=== PATIENT | male | born 1975 | race Caucasian/White ===

== ENCOUNTER 2018-05-21 10:10 | Emergency (ER) | payer SELFPAY ==
[2018-05-21] MEDS ORDERED: DELTASONE PO ONE (10:45)
[2018-05-21] MEDS ORDERED: NORCO 5/325 PO ONE (10:46)
--- NOTE | 2018-05-21 10:46 | Emergency Department Report ---
ED Chest Pain HPI - General Chief Complaint: Upper Respiratory Infection Stated Complaint: CHEST PAIN/SNEEZING/DIZZY Time Seen by Provider: 05/21/18 10:39 Source: patient, family Mode of arrival: Ambulatory Limitations: No Limitations, Language Barrier - History of Present Illness Initial Comments: Patient is a 43-year-old male who comes in complaining of acute on chronic lower back pain. He also complains of cough and congestion for about a month. The language barrier but he says that he has chest pain associated with coughing only. He is here with his fiance. He has no medical doctor here. He does smoke. He used to be on a pain management program. He currently has no PCP -: Gradual, month(s) Severity: mild Consistency: intermittent Improves With: nothing Worsens With: nothing Other Symptoms: cough. denies: fever - Related Data Previous Rx's Medication Instructions Recorded Last Taken Type Benzonatate [Tessalon Perles] 100 mg PO Q8HR PRN #20 capsule 05/21/18 Unknown Rx Fluticasone [Flonase] 1 spray NS QDAY #1 bottle 05/21/18 Unknown Rx RX: Amoxicillin 500 mg PO BID #20 capsule 05/21/18 Unknown Rx methylPREDNISolone [Medrol] 4 mg PO DAILY #1 tab.ds.pk 05/21/18 Unknown Rx Allergies Allergy/AdvReac Type Severity Reaction Status Date / Time No Known Allergies Allergy Verified 05/21/18 10:29 Heart Score - HEART Score History: Slightly suspicious EKG: Normal Age: 45-65 Risk factors: 1-2 risk factors Troponin: < normal limit HEART Score: 2 ED Review of Systems ROS: Stated complaint: CHEST PAIN/SNEEZING/DIZZY Other details as noted in HPI Comment: All other systems reviewed and negative Constitutional: denies: chills, fever Eyes: denies: eye pain ENT: as per HPI, throat pain. denies: ear pain, dental pain Respiratory: see HPI, cough. denies: orthopnea, shortness of breath, SOB with exertion, SOB at rest, stridor, wheezing Cardiovascular: as per HPI, chest pain. denies: palpitations, dyspnea on exertion, orthopnea, edema, syncope, paroxysmal nocturnal dyspnea (with cough) Endocrine: denies: excessive sweating Gastrointestinal: denies: abdominal pain Genitourinary: denies: urgency Musculoskeletal: as per HPI, back pain (acute on chronic) Skin: denies: rash Neurological: denies: weakness Psychiatric: denies: anxiety Hematological/Lymphatic: denies: easy bleeding ED Past Medical Hx - Past Medical History Previous Medical History?: Yes Additional medical history: chronic neck pain - Surgical History Past Surgical History?: No Hx Appendectomy: Yes - Social History Smoking Status: Current Some Day Smoker Substance Use Type: None - Medications Home Medications: Home Medications Medication Instructions Recorded Confirmed Last Taken Type Benzonatate [Tessalon Perles] 100 mg PO Q8HR PRN #20 capsule 05/21/18 Unknown Rx Fluticasone [Flonase] 1 spray NS QDAY #1 bottle 05/21/18 Unknown Rx RX: Amoxicillin 500 mg PO BID #20 capsule 05/21/18 Unknown Rx methylPREDNISolone [Medrol] 4 mg PO DAILY #1 tab.ds.pk 05/21/18 Unknown Rx ED Physical Exam - General Limitations: No Limitations, Language Barrier General appearance: alert - Head Head exam: Present: atraumatic - Eye Eye exam: Present: normal appearance, PERRL, EOMI Pupils: Present: normal accommodation - ENT ENT exam: Present: normal exam, mucous membranes moist, TM's normal bilaterally, other (sinus pain over frontal and maxillary sinuses) - Neck Neck exam: Present: normal inspection, full ROM - Respiratory Respiratory exam: Present: normal lung sounds bilaterally - Cardiovascular Cardiovascular Exam: Present: regular rate, normal heart sounds - GI/Abdominal GI/Abdominal exam: Present: soft, normal bowel sounds. Absent: distended, tenderness, diminished bowel sounds - Rectal Rectal exam: Present: deferred - exam: Present: normal inspection - Extremities Exam Extremities exam: Present: normal inspection, full ROM - Back Exam Back exam: Present: normal inspection, full ROM. Absent: CVA tenderness (R), CVA tenderness (L) - Neurological Exam Neurological exam: Present: alert, oriented X3 ED Course Vital Signs 05/21/18 05/21/18 10:20 11:50 Temperature 97.9 F 98.9 F Pulse Rate 71 60 Respiratory 18 16 Rate Blood Pressure 114/64 Blood Pressure 112/76 [Left] O2 Sat by Pulse 98 99 Oximetry RUI score - Rui Score Age > 65: (0) No Aspirin use within the Past 7 Days: (0) No 3 or more CAD Risk Factors: (0) No 2 or more Angina events in past 24 hrs: (0) No Known CAD with more than 50% Stenosis: (0) No Elevated Cardiac Markers: (0) No ST Deviation Greater than 0.5mm: (0) No RUI Score: 0 ED Medical Decision Making - Lab Data Result diagrams: 05/21/18 10:50 05/21/18 10:50 - EKG Data -: EKG Interpreted by Me EKG shows normal: sinus rhythm Rate: normal - EKG Data When compared to previous EKG there are: no significant change - Radiology Data Radiology results: report reviewed, image reviewed - Medical Decision Making numerous complaints which are chronic in nature [address]/T wave changes xray normal trop neg labs normal treated for urti referrals given for pcp/pain ambulatory, non toxic and taking po on dc Labs 05/21/18 05/21/18 10:50 10:50 WBC 7.7 RBC 4.95 Hgb 15.0 Hct 43.2 MCV 87 MCH 30 MCHC 35 H RDW 12.7 L Plt Count 244 Lymph % (Auto) 34.3 [place] % (Auto) 7.5 H Eos % (Auto) 4.2 Baso % (Auto) 0.9 Lymph # 2.7 [place] # 0.6 Eos # 0.3 Baso # 0.1 Seg Neutrophils % 53.1 Seg Neutrophils # 4.1 Sodium 139 Potassium 3.9 Chloride 103.3 Carbon Dioxide 23 Anion Gap 17 BUN 19 Creatinine 0.7 L Estimated GFR > 60 BUN/Creatinine Ratio 27 Glucose 136 H Calcium 9.1 Troponin T < 0.010 Critical care attestation.: If time is entered above; I have spent that time in minutes in the direct care of this critically ill patient, excluding procedure time. ED Disposition Clinical Impression: URTI (acute upper respiratory infection), Smoker, Chronic pain Disposition: DC-01 TO HOME OR SELFCARE Is pt being admited?: No Does the pt Need Aspirin: No Condition: Stable Instructions: Upper Respiratory Infection (ED), Chronic Back Pain (ED) Additional Instructions: diet as tolerated drink a lot of water meds as ordered today activity as tolerated stop smoking follow up with clinical case manager referral given below over the counter motrin or tylenol for mild pain Prescriptions: RX: Amoxicillin 500 mg PO BID #20 capsule Benzonatate [Tessalon Perles] 100 mg PO Q8HR PRN #20 capsule PRN Reason: Cough Fluticasone [Flonase] 1 spray NS QDAY #1 bottle methylPREDNISolone [Medrol] 4 mg PO DAILY #1 tab.ds.pk Referrals: DONALD UGALDE DO [Primary Care Provider] - 3-5 Days Time of Disposition: 11:34
[2018-05-21 11:03] LABS: Basophils # (Auto) 0.1 K/mm3 (0.0-0.1); Basophils % (Auto) 0.9 % (0.0-1.8); Eosinophils # (Auto) 0.3 K/mm3 (0.0-0.4); Eosinophils % (Auto) 4.2 % (0.0-4.3); Hematocrit 43.2 % (35.5-45.6); Lymphocytes # (Auto) 2.7 K/mm3 (1.2-5.4); Lymphocytes % (Auto) 34.3 % (13.4-35.0); Mean Corpuscular HGB Conc 35 % (32-34); Mean Corpuscular Volume 87 fl (84-94); Monocytes # (Auto) 0.6 K/mm3 (0.0-0.8); Monocytes % (Auto) 7.5 % (0.0-7.3); Platelet Count 244 K/mm3 (140-440); Red Blood Count 4.95 M/mm3 (3.65-5.03); Red Cell Distribution Width 12.7 % (13.2-15.2)
--- NOTE | 2018-05-21 11:08 | XRay Report ---
ROUTINE CHEST, TWO VIEWS: HISTORY: Upper respiratory infection. The trachea, heart, mediastinal contour, lung abad and bony thorax are unremarkable. IMPRESSION: Unremarkable chest x-ray.
[2018-05-21 11:27] LABS: BUN/Creatinine Ratio 27; Blood Urea Nitrogen 19 mg/dL (9-20); Calcium 9.1 mg/dL (8.4-10.2); Hemolysis Index 6
[2018-05-21 11:39] LABS: Bilirubin,Urine NEG (Negative); Blood,Urine NEG (Negative); Color,Urine Yellow (Yellow); Mucus,Urine FEW /HPF; Protein,Urine <15 mg/dL mg/dL (Negative); Urobilinogen,Urine < 2.0 mg/dL (<2.0)
[2018-05-21 11:51] VITALS: BP 112/76
== END 2018-05-21 11:51 | disposition home or self-care (01) ==
LOC: ED 10:10
DX: J06.9 Acute upper respiratory infection, unspecified (principal); R07.89 Other chest pain; F17.200 Nicotine dependence, unspecified, uncomplicated
CPT/HCPCS: 36415; 71046; 80048; 81001; 84484; 85025; 93005; 93010; 99284; J7512

== ENCOUNTER 2018-08-15 08:08 | Emergency (ER) | payer OTHER ==
[2018-08-15 08:35] LABS: Basophils # (Auto) 0.1 K/mm3 (0.0-0.1); Basophils % (Auto) 0.7 % (0.0-1.8); Eosinophils # (Auto) 0.3 K/mm3 (0.0-0.4); Hemoglobin 15.7 gm/dl (11.8-15.2); Lymphocytes % (Auto) 44.3 % (13.4-35.0); Mean Corpuscular HGB Conc 35 % (32-34); Mean Corpuscular Volume 87 fl (84-94); Monocytes # (Auto) 0.4 K/mm3 (0.0-0.8); Monocytes % (Auto) 5.7 % (0.0-7.3); Platelet Count 211 K/mm3 (140-440); Red Cell Distribution Width 12.7 % (13.2-15.2)
[2018-08-15 08:56] LABS: BUN/Creatinine Ratio 16; Blood Urea Nitrogen 13 mg/dL (9-20); Calcium 9.1 mg/dL (8.4-10.2); Hemolysis Index 12
--- NOTE | 2018-08-15 09:16 | XRay Report ---
PROCEDURE: XR CHEST ROUTINE 2V TECHNIQUE: Frontal and lateral views of the chest HISTORY: Chest Pain COMPARISONS: 05/21/2018 FINDINGS: The cardiomediastinal silhouette is normal in appearance. The lungs are clear without focal consolidation. No pleural effusion or pneumothorax. No acute bony or soft tissue abnormality IMPRESSION: No acute cardiopulmonary disease. This document is electronically signed by Jennifer Pulido MD., August 15 2018 09:14:21 AM ET
[2018-08-15] MEDS ORDERED: IBUPROFEN PO ONE (11:08)
[2018-08-15] MEDS ORDERED: ZOFRAN ODT PO ONE (11:08)
[2018-08-15] MEDS ORDERED: NORCO 5/325 PO ONE (11:08)
--- NOTE | 2018-08-15 11:08 | Emergency Department Report ---
ED General Adult HPI - General Chief complaint: Chest Pain Stated complaint: CHEST PAIN Time Seen by Provider: 08/15/18 10:21 Source: patient, EMS, grout machine tender Mode of arrival: Ambulatory Limitations: Language Barrier - History of Present Illness Initial comments: Mr. Jake Stewart is a very pleasant healthy 43 yo male with hx of chronic neck and back pain who presents with neck pain, shoulder pain, back pain, chest pain, chest congestion, and palpitations. He was informed by previous physician that he has herniated discs in back. He attributes neck pain to hard work. Both shoulder ache in posterior region. He has noted bloody sputum with cough. Has had palpitations recently without discrete pain. 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 He stopped smoking a few years ago. 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 -: Gradual, week(s) (several), month(s) (several), year(s) (several) Location: neck, chest, back Severity scale (0 -10): 7 Worsens with: movement Associated Symptoms: chest pain - Related Data Previous Rx's Medication Instructions Recorded Last Taken Type Amoxicillin 500 mg PO BID #20 capsule 05/21/18 Unknown Rx Benzonatate [Tessalon Perles] 100 mg PO Q8HR PRN #20 capsule 05/21/18 Unknown Rx Fluticasone [Flonase] 1 spray NS QDAY #1 bottle 05/21/18 Unknown Rx methylPREDNISolone [Medrol] 4 mg PO DAILY #1 tab.ds.pk 05/21/18 Unknown Rx HYDROcodone/ACETAMINOPHEN [[place] 1 each PO DAILY PRN #10 tablet 08/15/18 Unknown Rx 5-325 Tablet] Loratadine 10 mg PO DAILY 30 Days #30 tablet 08/15/18 Unknown Rx predniSONE [Prednisone] 50 mg PO DAILY 7 Days #7 tablet 08/15/18 Unknown Rx Allergies Allergy/AdvReac Type Severity Reaction Status Date / Time No Known Allergies Allergy Verified 08/15/18 08:09 ED Review of Systems ROS: Stated complaint: CHEST PAIN Other details as noted in HPI Comment: All other systems reviewed and negative Constitutional: denies: chills, fever Eyes: denies: eye pain, eye discharge, vision change ENT: denies: ear pain, throat pain Respiratory: denies: cough, shortness of breath, wheezing Cardiovascular: chest pain. denies: palpitations Endocrine: no symptoms reported Gastrointestinal: denies: abdominal pain, nausea, diarrhea Genitourinary: denies: urgency, dysuria Musculoskeletal: back pain. denies: joint swelling, arthralgia Skin: denies: rash, lesions Neurological: denies: headache, weakness, paresthesias Psychiatric: denies: anxiety, depression Hematological/Lymphatic: denies: easy bleeding, easy bruising ED Past Medical Hx - Past Medical History Previous Medical History?: No Additional medical history: chronic neck pain - Surgical History Hx Appendectomy: Yes - Family History Family history: other (father of lung issues, other family members are healthy) - Social History Smoking Status: Former Smoker Substance Use Type: None - Medications Home Medications: Home Medications Medication Instructions Recorded Confirmed Last Taken Type Amoxicillin 500 mg PO BID #20 capsule 05/21/18 Unknown Rx Benzonatate [Tessalon Perles] 100 mg PO Q8HR PRN #20 capsule 05/21/18 Unknown Rx Fluticasone [Flonase] 1 spray NS QDAY #1 bottle 05/21/18 Unknown Rx methylPREDNISolone [Medrol] 4 mg PO DAILY #1 tab.ds.pk 05/21/18 Unknown Rx HYDROcodone/ACETAMINOPHEN [[place] 1 each PO DAILY PRN #10 tablet 08/15/18 Unknown Rx 5-325 Tablet] Loratadine 10 mg PO DAILY 30 Days #30 tablet 08/15/18 Unknown Rx predniSONE [Prednisone] 50 mg PO DAILY 7 Days #7 tablet 08/15/18 Unknown Rx ED Physical Exam - General Limitations: Language Barrier ([place] line grout machine tender used) General appearance: alert, in no apparent distress - Head Head exam: Present: atraumatic, normocephalic - Eye Eye exam: Present: normal appearance - ENT ENT exam: Present: mucous membranes moist - Neck Neck exam: Present: normal inspection - Respiratory Respiratory exam: Present: normal lung sounds bilaterally. Absent: respiratory distress, wheezes, rales, rhonchi - Cardiovascular Cardiovascular Exam: Present: regular rate, normal rhythm, normal heart sounds. Absent: systolic murmur, diastolic murmur, rubs, gallop - GI/Abdominal GI/Abdominal exam: Present: soft, normal bowel sounds. Absent: distended, tenderness, guarding, rebound - Rectal Rectal exam: Present: deferred - Extremities Exam Extremities exam: Present: normal inspection - Back Exam Back exam: Present: normal inspection - Neurological Exam Neurological exam: Present: alert, oriented X3, normal gait - Psychiatric Psychiatric exam: Present: normal affect, normal mood - Skin Skin exam: Present: warm, dry, intact, normal color. Absent: rash ED Course Vital Signs 08/15/18 08/15/18 08:14 11:16 Temperature 97.7 F Pulse Rate 75 Respiratory 16 18 Rate Blood Pressure 151/76 O2 Sat by Pulse 99 Oximetry ED Medical Decision Making - Lab Data Result diagrams: 08/15/18 08:26 08/15/18 08:21 1. - EKG Data -: EKG Interpreted by Wy EKG shows normal: sinus rhythm, axis, intervals, QRS complexes, ST-T waves Rate: normal - Radiology Data Radiology results: report reviewed Chest x-ray PA and lateral: No acute process according to radiology report CTA chest NAP - Medical Decision Making 1. Neck and back pain suggestive of degenerative disc disease provided prescription for ibuprofen and [place] 2. Atypical chest pain with palpitations concerning for ectopic beat such as PVCs. Normal EKG normal troponin. 3. Productive cough with sneezing suggestive of allergic rhinitis versus chronic bronchitis: Prescription for loratadine and prednisone provided Referred to help desk specialist referred to outpatient clinic. No evidence of acute emergent illness. Critical care attestation.: If time is entered above; I have spent that time in minutes in the direct care of this critically ill patient, excluding procedure time. ED Disposition Clinical Impression: Neck pain, Back pain, Chronic bronchitis, Palpitations Disposition: - TO HOME OR SELFCARE Is pt being admited?: No Does the pt Need Aspirin: No Condition: Stable Instructions: Chronic Bronchitis (ED), Cervical Radiculopathy (ED) Prescriptions: Loratadine 10 mg PO DAILY 30 Days #30 tablet HYDROcodone/ACETAMINOPHEN [[place] 5-325 Tablet] 1 each PO DAILY PRN #10 tablet PRN Reason: Pain , Severe (7-10) predniSONE [Prednisone] 50 mg PO DAILY 7 Days #7 tablet [facility] [[facility] Care [facility] - 3-5 Days ADRYAN ULRICH MD [Staff Physician] - 3-5 Days Forms: Work/School Release Form(ED) Print Language: LITHUANIAN
--- NOTE | 2018-08-15 12:36 | Cat Scan Report ---
PROCEDURE: CT ANGIO CHEST TECHNIQUE: TECHNIQUE: Computerized tomographic angiography of the chest was performed after the IV i njection of iodinated nonionic contrast including image processing. The image data was postprocessed using 2-dimensional multiplanar reformatted (MPR) and 3-dimensional (MIP and/or volume rendered) iraj hniques. Automated exposure control, adjustment of mA and/or kV according to patient size, or iterati ve reconstruction dose optimization techniques were utilized. Coronal and sagittal reconstructed imag ing provided. CT DOSE LENGTH PRODUCT: 800.9 mGy-cm. HISTORY: pleuritic chest pain hemoptysis COMPARISONS: None currently available. FINDINGS: No pneumothorax. No effusion. No consolidation. No endobronchial lesion. Main pulmonary artery is unremarkable. No pulmonary embolism. No aneurysm. No dissection. Major branch arteries are within normal limits. No significant atheroscle rotic disease. Cardiac silhouette is within normal limits. No pericardial effusion. No obvious coronary artery disea se. There is no axillary adenopathy. There is no hilar or mediastinal mass or adenopathy. Limited images of the thyroid gland are unremarkable. Limited images of the esophagus are unremarkable. Bones: No suspicious osseous lesions on this limited examination of the skeleton. Metastatic disease better evaluated with bone scan. IMPRESSION: * No acute findings. This document is electronically signed by Yovani Navarrete MD., August 15 2018 12:34:10 PM ET
[2018-08-15 13:02] VITALS: BP 127/67
== END 2018-08-15 13:01 | disposition home or self-care (01) ==
LOC: ED 08:08
DX: M54.2 Cervicalgia (principal); R00.2 Palpitations; M54.9 Dorsalgia, unspecified; J42 Unspecified chronic bronchitis; Z90.89 Acquired absence of other organs; Z87.891 Personal history of nicotine dependence
CPT/HCPCS: 36415; 71046; 71275; 80048; 84484; 85025; 93005; 93010; 99284; Q9967; Q0162

== ENCOUNTER 2018-08-17 16:35 | Emergency (ER) | payer OTHER ==
--- NOTE | 2018-08-17 17:31 | Emergency Department Report ---
Chief Complaint: Chest Pain Stated Complaint: CHEST PAIN/SOB Time Seen by Provider: 08/17/18 17:27 - HPI History of Present Illness: pt presents to the ED with c/o left CP that began a few hours ago states he has SOB no cough no N/V no radiation of the pain no recent long car and plane ride, no recent surgery, no immobilization no LE edema pt was here two days ago, has not followed up PSHx of appendectomy hx of DDD in the C-spine no HTn, no DM no cardiac hx no family cardiac hx former smoker quit two months (+) drinker no drug use MSE screening note: Focused history and physical exam performed. Due to findings the following was ordered: labs, EKG, CXR, UA ED Disposition for MSE Condition: Stable
[2018-08-17 17:51] LABS: Basophils % (Auto) 0.3 % (0.0-1.8); Hematocrit 45.8 % (35.5-45.6); Hemoglobin 15.9 gm/dl (11.8-15.2); Lymphocytes # (Auto) 1.2 K/mm3 (1.2-5.4); Lymphocytes % (Auto) 15.3 % (13.4-35.0); Mean Corpuscular HGB Conc 35 % (32-34); Mean Corpuscular Volume 86 fl (84-94); Monocytes # (Auto) 0.2 K/mm3 (0.0-0.8); Monocytes % (Auto) 2.8 % (0.0-7.3); Platelet Count 251 K/mm3 (140-440); Red Blood Count 5.31 M/mm3 (3.65-5.03); Red Cell Distribution Width 12.9 % (13.2-15.2)
[2018-08-17 18:00] LABS: INR 0.89 (0.87-1.13)
[2018-08-17 18:01] LABS: Partial Thromboplastin Time 26.1 Sec. (24.2-36.6)
[2018-08-17 18:23] LABS: Alanine Aminotransferase 36 units/L (7-56); Albumin 4.9 g/dL (3.9-5); BUN/Creatinine Ratio 13; Blood Urea Nitrogen 10 mg/dL (9-20); Calcium 9.2 mg/dL (8.4-10.2); Hemolysis Index 9
--- NOTE | 2018-08-17 18:38 | XRay Report ---
PROCEDURE: XR CHEST ROUTINE 2V HISTORY: Chest Pain FINDINGS: Frontal and lateral views of the chest were acquired and compared to the prior examination of August 15, 2018. There is cardiomegaly, unchanged. There is no evidence of congestive heart failure. There is no conso lidative pulmonary infiltrate. IMPRESSION: Stable cardiomegaly This document is electronically signed by Allan Krishnan MD., August 17 2018 06:35:27 PM ET
[2018-08-17] MEDS ORDERED: TORADOL IM ONE (20:20)
[2018-08-17] MEDS ORDERED: TORADOL ONE (20:27)
--- NOTE | 2018-08-17 20:29 | Emergency Department Report ---
ED Chest Pain HPI - General Chief Complaint: Chest Pain Stated Complaint: CHEST PAIN/SOB Time Seen by Provider: 08/17/18 17:27 Source: patient Mode of arrival: Ambulatory Limitations: No Limitations - History of Present Illness Initial Comments: Patient is 43 years old male with no significant past medical history. The patient was multiple visit to the emergency room for a different complain. Patient presented to the ER complaining of left-sided chest pain, throbbing aching in nature for the last week. Patient denied any shortness of breath, cough or chills. Patient stated that he do a lot of pulling and pushing at his work. Patient was seen here 2 days ago for the same complaint had a cardiac workup in the emergency room which was negative and also had a CTA chest negative for PE or other pathology. MD Complaint: chest pain -: week(s) Onset: during rest Pain Location: left chest Severity: moderate Severity scale (0 -10): 10 Quality: aching, sharp Consistency: intermittent Improves With: remaining still Worsens With: movement - Related Data Previous Rx's Medication Instructions Recorded Last Taken Type Amoxicillin 500 mg PO BID #20 capsule 05/21/18 Unknown Rx Benzonatate [Tessalon Perles] 100 mg PO Q8HR PRN #20 capsule 05/21/18 Unknown Rx Fluticasone [Flonase] 1 spray NS QDAY #1 bottle 05/21/18 Unknown Rx methylPREDNISolone [Medrol] 4 mg PO DAILY #1 tab.ds.pk 05/21/18 Unknown Rx HYDROcodone/ACETAMINOPHEN [[place] 1 each PO DAILY PRN #10 tablet 08/15/18 Unknown Rx 5-325 Tablet] Loratadine 10 mg PO DAILY 30 Days #30 tablet 08/15/18 Unknown Rx predniSONE [Prednisone] 50 mg PO DAILY 7 Days #7 tablet 08/15/18 Unknown Rx Allergies Allergy/AdvReac Type Severity Reaction Status Date / Time No Known Allergies Allergy Verified 08/15/18 08:09 Heart Score - HEART Score History: Slightly suspicious EKG: Normal Age: 45-65 Risk factors: No known risk factors Troponin: < normal limit HEART Score: 1 - Critical Actions Critical Actions: 0-3 pts:0.9-1.7%risk of adverse cardiac event.Candidate for discharge ED Review of Systems ROS: Stated complaint: CHEST PAIN/SOB Other details as noted in HPI Comment: All other systems reviewed and negative Constitutional: denies: chills, fever Respiratory: denies: cough, orthopnea, shortness of breath, SOB with exertion, SOB at rest, wheezing Cardiovascular: denies: chest pain, palpitations Gastrointestinal: denies: abdominal pain, nausea, vomiting, diarrhea, constipation, hematemesis, melena, hematochezia Neurological: denies: headache, weakness, numbness, paresthesias, confusion ED Past Medical Hx - Past Medical History Additional medical history: chronic neck pain - Surgical History Hx Appendectomy: Yes - Social History Smoking Status: Unknown if ever smoked Substance Use Type: Alcohol - Medications Home Medications: Home Medications Medication Instructions Recorded Confirmed Last Taken Type Amoxicillin 500 mg PO BID #20 capsule 05/21/18 Unknown Rx Benzonatate [Tessalon Perles] 100 mg PO Q8HR PRN #20 capsule 05/21/18 Unknown Rx Fluticasone [Flonase] 1 spray NS QDAY #1 bottle 05/21/18 Unknown Rx methylPREDNISolone [Medrol] 4 mg PO DAILY #1 tab.ds.pk 05/21/18 Unknown Rx HYDROcodone/ACETAMINOPHEN [[place] 1 each PO DAILY PRN #10 tablet 08/15/18 Unknown Rx 5-325 Tablet] Loratadine 10 mg PO DAILY 30 Days #30 tablet 08/15/18 Unknown Rx predniSONE [Prednisone] 50 mg PO DAILY 7 Days #7 tablet 08/15/18 Unknown Rx ED Physical Exam - General Limitations: No Limitations General appearance: alert, in no apparent distress - Head Head exam: Present: atraumatic, normocephalic, normal inspection - Eye Eye exam: Present: normal appearance - ENT ENT exam: Present: normal exam, normal orophraynx, mucous membranes moist - Respiratory Respiratory exam: Present: normal lung sounds bilaterally, chest wall tenderness. Absent: respiratory distress, wheezes, rales, rhonchi, accessory muscle use, decreased breath sounds, prolonged expiratory - Cardiovascular Cardiovascular Exam: Present: regular rate, normal rhythm, normal heart sounds - GI/Abdominal GI/Abdominal exam: Present: soft, normal bowel sounds. Absent: distended, tenderness, guarding, rebound, rigid, organomegaly, mass, bruit, pulsatile mass, hernia - Extremities Exam Extremities exam: Present: normal inspection, full ROM, normal capillary refill. Absent: pedal edema, calf tenderness - Back Exam Back exam: Present: normal inspection, full ROM. Absent: tenderness, CVA tenderness (R), CVA tenderness (L), muscle spasm, paraspinal tenderness, vertebral tenderness - Neurological Exam Neurological exam: Present: alert, oriented X3, CN II-XII intact, normal gait, reflexes normal - Skin Skin exam: Present: warm, intact, normal color ED Course Vital Signs 08/17/18 08/17/18 17:27 18:34 Temperature 98.1 F 97.9 F Pulse Rate 82 83 Respiratory 18 18 Rate Blood Pressure 146/68 144/85 O2 Sat by Pulse 98 100 Oximetry RUI score - Rui Score Age > 65: (0) No Aspirin use within the Past 7 Days: (0) No 3 or more CAD Risk Factors: (0) No 2 or more Angina events in past 24 hrs: (0) No Known CAD with more than 50% Stenosis: (0) No Elevated Cardiac Markers: (0) No ST Deviation Greater than 0.5mm: (0) No RUI Score: 0 ED Medical Decision Making - Lab Data Result diagrams: 08/17/18 17:40 08/17/18 17:40 - EKG Data -: EKG Interpreted by In EKG shows normal: sinus rhythm Rate: normal - EKG Data When compared to previous EKG there are: no significant change - Radiology Data Radiology results: report reviewed Chest x-ray is unremarkable. - Medical Decision Making Patient chest pain is reproducible. Patient had a negative troponin. I believe patient's symptoms is most likely related to acute costochondritis. I will start patient and not proceeding and advised to follow-up with his primary care physician in the next 2-3 days and to return to the ER if symptoms are not improved. Critical care attestation.: If time is entered above; I have spent that time in minutes in the direct care of this critically ill patient, excluding procedure time. ED Disposition Clinical Impression: Costochondritis, acute Disposition: DC-01 TO HOME OR SELFCARE Is pt being admited?: No Condition: Stable Instructions: Costochondritis (ED) Referrals: MYRON CASTILLO MD [Primary Care Provider] - 3-5 Days
[2018-08-18 19:26] VITALS: BP 124/75
== END 2018-08-17 21:13 | disposition home or self-care (01) ==
LOC: ED 16:35
DX: M94.0 Chondrocostal junction syndrome [Tietze] (principal); M54.2 Cervicalgia; G89.29 Other chronic pain; Z90.49 Acquired absence of other specified parts of digestive tract
CPT/HCPCS: 36415; 71046; 80053; 84484; 85025; 85610; 85730; 93005; 93010; 96372; 99283; J1885